=== PATIENT | female | born 1975 | race American Indian/Alaskan Native ===

== ENCOUNTER 2016-12-19 10:46 | Emergency (ER) | payer OTHER ==
[2016-12-19] MEDS ORDERED: BOOSTRIX IM ONE (13:59)
[2016-12-19] MEDS ORDERED: CLEOCIN IM ONE (13:59)
--- NOTE | 2016-12-19 14:36 | Emergency Department Report ---
ED General Adult HPI - General Chief complaint: Skin/Abscess/Foreign Body Stated complaint: INSECT BITE TO FACE Time Seen by Provider: 12/19/16 13:50 Source: patient Mode of arrival: Ambulatory Limitations: No Limitations - History of Present Illness Initial comments: PT c/o pain and swelling to R face. PT states she woke up Wednesday and noticed a small bump that was itchy. PT states she thought she had a bug bite. PT states she treated it topically and she took a Benadryl for the itching. PT states she noticed that the bump kept getting bigger. PT states she had some yellow drainage from the site. PT states her pain increased when she woke up this morning. PT states she also noticed facial swelling. PT states her lmp was 5 years ago due to having an ablation. MD Complaint: cellulitis -: Gradual, days(s) Location: face Severity scale (0 -10): 8 Quality: sharp, constant Consistency: constant Improves with: none Worsens with: medication, rest, other (palpation ) Associated Symptoms: denies other symptoms. denies: fever/chills, nausea/ vomiting Treatments Prior to Arrival: none - Related Data Previous Rx's Medication Instructions Recorded Last Taken Type Acetaminophen/Codeine [Tylenol #3] 1 tab PO Q6H PRN #12 tab 12/19/16 Unknown Rx Clindamycin [Clindamycin CAP] 300 mg PO Q8H #30 cap 12/19/16 Unknown Rx Ibuprofen [Motrin] 600 mg PO Q8H PRN #15 tablet 12/19/16 Unknown Rx Allergies Allergy/AdvReac Type Severity Reaction Status Date / Time No Known Allergies Allergy Unverified 12/19/16 11:05 ED Review of Systems ROS: Stated complaint: INSECT BITE TO FACE Other details as noted in HPI Comment: All other systems reviewed and negative Constitutional: denies: chills, fever ENT: ear pain Gastrointestinal: denies: abdominal pain, nausea, vomiting Genitourinary: denies: abnormal menses Musculoskeletal: as per HPI Skin: as per HPI, change in color Neurological: headache ED Past Medical Hx - Past Medical History Hx Hypertension: Yes - Surgical History Additional Surgical History: Thyroidectomy, tubal ligation, lap band - Social History Smoking Status: Never Smoker Substance Use Type: None - Medications Home Medications: Home Medications Medication Instructions Recorded Confirmed Last Taken Type Acetaminophen/Codeine [Tylenol #3] 1 tab PO Q6H PRN #12 tab 12/19/16 Unknown Rx Clindamycin [Clindamycin CAP] 300 mg PO Q8H #30 cap 12/19/16 Unknown Rx Ibuprofen [Motrin] 600 mg PO Q8H PRN #15 tablet 12/19/16 Unknown Rx ED Physical Exam - General Limitations: No Limitations General appearance: alert, in no apparent distress - Head Head exam: Present: atraumatic, normocephalic, other (R check with erythema, edema, warmth and tenderness. no area of flucuance noted. ) - Eye Eye exam: Present: normal appearance, PERRL, EOMI. Absent: conjunctival injection - ENT ENT exam: Present: normal orophraynx, mucous membranes moist, other (no dental abcess noted ). Absent: TM's normal bilaterally (PET in R ear ) - Neck Neck exam: Present: normal inspection, tenderness, full ROM, lymphadenopathy - Respiratory Respiratory exam: Present: normal lung sounds bilaterally. Absent: respiratory distress, chest wall tenderness - Cardiovascular Cardiovascular Exam: Present: regular rate, normal rhythm, normal heart sounds - GI/Abdominal GI/Abdominal exam: Present: soft. Absent: tenderness - Extremities Exam Extremities exam: Present: normal inspection, full ROM - Back Exam Back exam: Present: normal inspection, full ROM. Absent: tenderness, CVA tenderness (R), CVA tenderness (L), muscle spasm, paraspinal tenderness, vertebral tenderness - Neurological Exam Neurological exam: Present: alert, oriented X3, normal gait - Psychiatric Psychiatric exam: Present: normal affect, normal mood - Skin Skin exam: Present: warm, dry, intact, erythema (to R check ) - Expanded Skin Exam Expanded Distribution of rash: face Description of rash: Present: tenderness, erythematous, swelling. Absent: vesicular, blisters ED Course Vital Signs 12/19/16 12/19/16 11:05 15:14 Temperature 98.4 F 99.5 F Pulse Rate 65 60 Respiratory 16 20 Rate Blood Pressure 140/99 Blood Pressure 168/105 [Left] O2 Sat by Pulse 100 100 Oximetry - Reevaluation(s) Reevaluation #1: 12/19/16 14:43 PT aware of dx. PT aware of plan of care. Strict return precautions reviewed. - Pulse Oximetry Interpretation Digit-Finger Initial Pulse Oximetry Readin Actions Taken: none ED Medical Decision Making - Differential Diagnosis abscess, celluitis Critical Care Time: No Critical care attestation.: If time is entered above; I have spent that time in minutes in the direct care of this critically ill patient, excluding procedure time. ED Disposition Clinical Impression: Facial cellulitis, Need for Tdap vaccination Disposition: TO HOME OR SELFCARE Is pt being admited?: No Does the pt Need Aspirin: No Condition: Stable Instructions: Cellulitis (ED) Additional Instructions: Return to the ED in 24-48 hours for recheck Return sooner if you develop blisters, fevers, chills, nausea, vomiting or worsening swelling Warm compresses to R face at least 6 times a day No driving or Alcohol if you need to take Tylenol #3 for your pain Good hand washing Follow up with PCP next week for bp recheck Prescriptions: Acetaminophen/Codeine [Tylenol #3] 1 tab PO Q6H PRN #12 tab PRN Reason: Pain , Severe (7-10) Clindamycin [Clindamycin CAP] 300 mg PO Q8H #30 cap Ibuprofen [Motrin] 600 mg PO Q8H PRN #15 tablet PRN Reason: Pain Referrals: THA FORRESTER MD [Primary Care Provider] - 3-5 Days Time of Disposition: 14:51
[2016-12-19 15:15] VITALS: BP 168/105
== END 2016-12-19 15:25 | disposition home or self-care (01) ==
LOC: ED 10:46
DX: L03.211 Cellulitis of face (principal); I10 Essential (primary) hypertension
CPT/HCPCS: 90471; 90715; 96372; 99282

== ENCOUNTER 2018-11-07 18:03 | Emergency (ER) | payer SELFPAY ==
--- NOTE | 2018-11-07 18:44 | Emergency Department Report ---
Blank Doc - Documentation Documentation: This is a 43-year-old female that presents with intermittent headaches and tanya atreal lower leg swelling. Denies any trauma. Denies worst headache or thunderclap headache. This initial assessment/diagnostic orders/clinical plan/treatment(s) is/are subject to change based on patient's health status, clinical progression and re- assessment by fellow clinical providers in the ED. Further treatment and workup at subsequent clinical providers discretion. Patient/guardians urged not to elope from the ED as their condition may be serious if not clinically assessed and managed. Initial orders include: 1- Patient sent to [facility] for further evaluation and treatment 2- labs
[2018-11-07 19:18] LABS: Basophils # (Auto) 0.1 K/mm3 (0.0-0.1); Basophils % (Auto) 1.2 % (0.0-1.8); Eosinophils # (Auto) 0.1 K/mm3 (0.0-0.4); Eosinophils % (Auto) 2.5 % (0.0-4.3); Hemoglobin 13.9 gm/dl (10.1-14.3); Lymphocytes # (Auto) 1.9 K/mm3 (1.2-5.4); Lymphocytes % (Auto) 33.1 % (13.4-35.0); Mean Corpuscular HGB Conc 35 % (30-34); Mean Corpuscular Volume 87 fl (79-97); Monocytes # (Auto) 0.6 K/mm3 (0.0-0.8); Monocytes % (Auto) 9.6 % (0.0-7.3); Platelet Count 263 K/mm3 (140-440); Red Blood Count 4.58 M/mm3 (3.65-5.03); Red Cell Distribution Width 12.6 % (13.2-15.2)
[2018-11-07 19:47] LABS: BUN/Creatinine Ratio 20; Blood Urea Nitrogen 14 mg/dL (7-17); Hemolysis Index 15
--- NOTE | 2018-11-07 21:34 | Emergency Department Report ---
HPI - General Chief Complaint: Headache Time Seen by Provider: 11/07/18 18:42 - HPI HPI: 43-year-old white female presents to the emergency department with complaint of a 5 day history of right-sided headache, as well as some pain and numbness to the right arm and leg. She says that it is a sharp pain but at the same time and also feels numb. These symptoms worsen at night. She's been taking some Tylenol for her symptoms with some transient relief. No vision change, slurred speech. She has a history of hypertension and hypothyroidism. She does not have a primary care physician. She denies any tobacco or illicit drug use. ED Past Medical Hx - Past Medical History Hx Hypertension: Yes - Surgical History Past Surgical History?: Yes Additional Surgical History: Thyroidectomy, tubal ligation, lap band - Social History Smoking Status: Never Smoker Substance Use Type: Alcohol - Medications Home Medications: Home Medications Medication Instructions Recorded Confirmed Last Taken Type Acetaminophen/Codeine [Tylenol #3] 1 tab PO Q6H PRN #12 tab 12/19/16 Unknown Rx Clindamycin [Clindamycin CAP] 300 mg PO Q8H #30 cap 12/19/16 Unknown Rx Ibuprofen [Motrin] 600 mg PO Q8H PRN #15 tablet 12/19/16 Unknown Rx ED Review of Systems ROS: Stated complaint: RT SIDE SWOLLEN/HEADACHE Other details as noted in HPI Comment: All other systems reviewed and negative Constitutional: denies: chills, fever Eyes: denies: eye pain, vision change ENT: denies: ear pain, throat pain Respiratory: denies: cough, shortness of breath Cardiovascular: edema (ankles). denies: chest pain, palpitations Gastrointestinal: denies: abdominal pain, vomiting Genitourinary: denies: dysuria, discharge Musculoskeletal: myalgia. denies: back pain Skin: denies: rash, lesions Neurological: headache, numbness. denies: weakness Physical Exam - Physical Exam Vital Signs: Vital Signs 11/07/18 18:38 Temperature 98.3 F Pulse Rate 90 Respiratory 18 Rate Blood Pressure 153/91 O2 Sat by Pulse 100 Oximetry Physical Exam: GENERAL: The patient is well-developed well-nourished. HENT: Normocephalic. Atraumatic. Patient has moist mucous membranes. EYES: Extraocular motions are intact. Pupils equal reactive to light bilaterally. No nystagmus. NECK: Supple. Trachea is midline. CHEST/LUNGS: Clear to auscultation. There is no respiratory distress noted. HEART/CARDIOVASCULAR: Regular. There is no tachycardia. There is no murmur. ABDOMEN: Abdomen is soft, nontender. Patient has normal bowel sounds. There is no abdominal distention. SKIN: Skin is warm and dry. NEURO: The patient is awake, alert, and oriented. The patient is cooperative. The patient has no focal neurologic deficits. The patient has normal speech. Cranial nerves II through XII grossly intact. No pronator drift. No facial asymmetry. No dysmetria. MUSCULOSKELETAL: There is no tenderness or deformity. There is no limitation range of motion. There is no evidence of acute injury. ED Course Vital Signs 11/07/18 18:38 Temperature 98.3 F Pulse Rate 90 Respiratory 18 Rate Blood Pressure 153/91 O2 Sat by Pulse 100 Oximetry ED Medical Decision Making - Lab Data Result diagrams: 11/07/18 18:56 11/07/18 18:56 - Radiology Data Radiology results: report reviewed CT of the head does not show any acute intracranial process including no ischemia, shift, mass, bleeding or skull fracture. - Medical Decision Making Patient presents with a few days of a right-sided headache. She has some complaints of some right arm pain that she described as both pain and numbness. On examination, she has no focal or motor deficits. Cranial nerves are intact. CT of the head did not show any bleed, shift, mass, ischemia, or any other acute process. Her labs have been unremarkable. She was given a [place] for pain with resolution of the headache. She still complains of some pain to the right upper arm down to the elbow. The patient is feeling improved and asking for discharge home. She has been given a referral for PCP, and an orthopedist. She w ill return to the emergency department with any return or worsening of her symptoms or any acute distress. - Differential Diagnosis Migraine, tension WOLF, TIA, SAH Critical Care Time: No Critical care attestation.: If time is entered above; I have spent that time in minutes in the direct care of this critically ill patient, excluding procedure time. ED Disposition Clinical Impression: Right arm pain Headache Qualifiers: Headache type: unspecified Headache chronicity pattern: unspecified pattern Intractability: not intractable Qualified Code(s): R51 - Headache Disposition: DC-01 TO HOME OR SELFCARE Is pt being admited?: No Condition: Stable Instructions: Acute Headache (ED), Arthralgia (ED) Additional Instructions: Please follow up with a primary care physician in the next few days. I will give you a referral for some local primary care physicians and clinics in the area. I am also giving him a referral for a local orthopedist, Dr. Gramajo, to follow up regarding your right arm pain. Return to the emergency department immediately with any worsening of your symptoms or any acute distress. Referrals: [facility] [Outside] - 2-3 Days KATHI HERNANDEZ MD [Staff Physician] - 2-3 Days CHON GRAMAJO MD [Staff Physician] - 2-3 Days Time of Disposition: 02:21
[2018-11-07] MEDS ORDERED: NORCO 5/325 PO ONE (22:10)
[2018-11-07] MEDS ORDERED: NORCO 5/325 ONE (22:15)
[2018-11-07] MEDS ORDERED: NACL 0.9% 1000 ML 1,000 ML ONE (22:52)
[2018-11-07 23:20] LABS: Bacteria,Urine 1+ /HPF (Negative); Mucus,Urine FEW /HPF
[2018-11-08 00:05] LABS: Bilirubin,Urine NEG (Negative); Blood,Urine NEG (Negative); Color,Urine Straw (Yellow); Protein,Urine <15 mg/dL mg/dL (Negative); Urobilinogen,Urine < 2.0 mg/dL (<2.0)
[2018-11-08 00:24] VITALS: BP 136/79
--- NOTE | 2018-11-10 12:51 | Cat Scan Report ---
CT head without contrast INDICATION : WOLF; LEFT SIDE WEAKNESS. TECHNIQUE: Axial imaging performed from the skull apex through the skull base without the use of con trast. All CT scans at this location are performed using CT dose reduction for ALARA by means of aut omated exposure control. COMPARISON: None FINDINGS: Parenchyma: No acute intracranial hemorrhage or parenchymal abnormality. Ventricles: Ventricles are normal in size and appear symmetric. Soft tissues: Soft tissues including the orbits appear normal. Bones: No acute osseous abnormality. Sinuses: Sinuses and mastoid air cells are clear. IMPRESSION: No acute abnormality. Signer Name: Malik Herman MD Signed: 11/07/2018 11:08 PM Workstation Name: [id number]
== END 2018-11-08 00:48 | disposition home or self-care (01) ==
LOC: ED 18:03
DX: M79.601 Pain in right arm (principal); R51 Headache; I10 Essential (primary) hypertension; Z98.51 Tubal ligation status; E89.0 Postprocedural hypothyroidism; Z91.041 Radiographic dye allergy status; Z79.1 Long term (current) use of non-steroidal anti-inflammatories (NSAID); Z79.899 Other long term (current) drug therapy
CPT/HCPCS: 36415; 70450; 80048; 81001; 83735; 83880; 84443; 84703; 85025; 99283; J7030

== ENCOUNTER 2019-05-29 08:30 | Emergency (ER) | payer OTHER ==
[2019-05-29 08:38] VITALS: BP 149/99
[2019-05-29] MEDS ORDERED: KETOROLAC 60 MG/2 ML INJ IM ONE (10:32)
[2019-05-29] MEDS ORDERED: predniSONE 20 MG TAB PO ONE (10:32)
--- NOTE | 2019-05-29 11:05 | Emergency Department Report ---
ED Back Pain/Injury HPI - General Chief Complaint: Back Pain/Injury Stated Complaint: BACK AND RIGHT LEG PAIN Time Seen by Provider: 05/29/19 09:21 Source: patient Limitations: No Limitations - History of Present Illness Initial Comments: This is a 43-year-old female nontoxic, well nourished in appearance, no acute signs of distress presents to the ED with c/o of acute on chronic lower back pain. Patient stated that the past 2 days he was moving and developed this pain. Patient states has history of sciatica nerve pain which is similar symptoms as today. Patient states that pain radiates through to his right lower extremity. Patient denies any trauma. Denies any bladder or bowel instability. Patient denies any urinary symptoms. Denies any fever, chills, nausea, v omiting, headache, stiff neck, chest pain or shortness of breath. Patient denies any numbness or tingling. Denies any drug allergies. Denies significant past medical history. MD Complaint: back pain -: days(s) (2) Similar Symptoms Previously: Yes Radiation: right leg Severity: mild Severity scale (0 -10): 8 Quality: aching Consistency: constant Improves With: immobilization, sitting upright Worsens With: movement, walking Context: while lifting, turning/twisting Associated Symptoms: denies other symptoms. denies: confusion, weakness, chest pain, numbness, difficulty walking, cough, difficulty urinating, diaphoresis, incontinence, fever/chills, constipation, headaches, abdominal pain, loss of appetite, malaise, nausea/vomiting, rash, seizure, shortness of breath, syncope - Related Data Previous Rx's Medication Instructions Recorded Last Taken Type Acetaminophen/Codeine [Tylenol #3] 1 tab PO Q6H PRN #12 tab 12/19/16 Unknown Rx Clindamycin [Clindamycin CAP] 300 mg PO Q8H #30 cap 12/19/16 Unknown Rx Ibuprofen [Motrin] 600 mg PO Q8H PRN #15 tablet 12/19/16 Unknown Rx Cyclobenzaprine [Flexeril] 10 mg PO QHS PRN #10 tablet 05/29/19 Unknown Rx Naproxen 500 mg PO Q12H PRN #20 tablet 05/29/19 Unknown Rx Allergies Allergy/AdvReac Type Severity Reaction Status Date / Time iodine Allergy Shortness Verified 11/07/18 18:07 of Breath ED Review of Systems ROS: Stated complaint: BACK AND RIGHT LEG PAIN Other details as noted in HPI Constitutional: denies: chills, fever Eyes: denies: eye pain, eye discharge, vision change ENT: denies: ear pain, throat pain Respiratory: denies: cough, shortness of breath, wheezing Cardiovascular: denies: chest pain, palpitations Endocrine: no symptoms reported Gastrointestinal: denies: abdominal pain, nausea, diarrhea Genitourinary: denies: urgency, dysuria, discharge Musculoskeletal: back pain. denies: joint swelling, arthralgia Skin: denies: rash, lesions Neurological: denies: headache, weakness, paresthesias Psychiatric: denies: anxiety, depression Hematological/Lymphatic: denies: easy bleeding, easy bruising ED Past Medical Hx - Past Medical History Previous Medical History?: Yes Hx Hypertension: Yes - Surgical History Past Surgical History?: Yes Additional Surgical History: Thyroidectomy, tubal ligation, lap band - Social History Smoking Status: Never Smoker Substance Use Type: None - Medications Home Medications: Home Medications Medication Instructions Recorded Confirmed Last Taken Type Acetaminophen/Codeine [Tylenol #3] 1 tab PO Q6H PRN #12 tab 12/19/16 Unknown Rx Clindamycin [Clindamycin CAP] 300 mg PO Q8H #30 cap 12/19/16 Unknown Rx Ibuprofen [Motrin] 600 mg PO Q8H PRN #15 tablet 12/19/16 Unknown Rx Cyclobenzaprine [Flexeril] 10 mg PO QHS PRN #10 tablet 05/29/19 Unknown Rx Naproxen 500 mg PO Q12H PRN #20 tablet 05/29/19 Unknown Rx ED Physical Exam - General Limitations: No Limitations General appearance: alert, in no apparent distress - Head Head exam: Present: atraumatic, normocephalic - Eye Eye exam: Present: normal appearance - Neck Neck exam: Present: normal inspection, full ROM. Absent: tenderness, meningismus, lymphadenopathy - Extremities Exam Extremities exam: Present: normal inspection, full ROM - Back Exam Back exam: Present: normal inspection, full ROM, paraspinal tenderness (lumbar paraspinal). Absent: tenderness, CVA tenderness (R), CVA tenderness (L), muscle spasm, vertebral tenderness, rash noted - Expanded Back Exam Expanded Back exam: Absent: saddle anesthesia Back exam: Negative Straight Leg Raising: Left, Right - Neurological Exam Neurological exam: Present: alert, oriented X3, normal gait - Psychiatric Psychiatric exam: Present: normal affect, normal mood - Skin Skin exam: Present: warm, dry, intact, normal color. Absent: rash ED Course Vital Signs 05/29/19 08:34 Temperature 97.7 F Pulse Rate 78 Respiratory 18 Rate Blood Pressure 149/99 O2 Sat by Pulse 99 Oximetry - Reevaluation(s) Reevaluation #1: 05/29/19 11:06 Patient is speaking in full sentences with no signs of distress noted. ED Medical Decision Making - Medical Decision Making This is a 43-year-old female that presents with low back strain. Patient is stable was examined by me. There is no spinal tenderness. There is no cauda equina syndrome during examination. No bladder or bowel instability. Patient received Toradol 60 mg IM and predisone in the ED which stated that her symptoms has resolved and subsided. Patient is discharged with muscle relaxant and Motrin. Patient was instructed not to operate any machinery while taking muscle relaxant as they cause her drowsiness. Patient was referred to Follow-up with a primary care doctor in 3-5 days or if symptoms worsen and continue return to emergency room as soon as possible. At time of discharge, the patient does not seem toxic or ill in appearance. No acute signs of distress noted. Patient agrees to discharge treatment plan of care. No further questions noted by the patient. This chart is dictated with using [employer] Critical care attestation.: If time is entered above; I have spent that time in minutes in the direct care of this critically ill patient, excluding procedure time. ED Disposition Clinical Impression: Low back strain Qualifiers: Encounter type: initial encounter Qualified Code(s): S39.012A - Strain of muscle, fascia and tendon of lower back, initial encounter Disposition: - TO HOME OR SELFCARE Is pt being admited?: No Does the pt Need Aspirin: No Condition: Stable Instructions: Low Back Strain (ED), Cyclobenzaprine (By mouth) Additional Instructions: Follow-up with your primary care doctor in 3-5 days or if symptoms worsen such as bladder or bowel stability, chest pain, short of breath, numbness or tingling sensation in extremities, headache, dizziness, visual changes, nausea vomiting, or abdominal pain, return back to emergency room as was possible. Take ibuprofen and Flexeril as prescribed. Do not operate heavy machinery while taking Flexeril due to sedation Prescriptions: Cyclobenzaprine [Flexeril] 10 mg PO QHS PRN #10 tablet PRN Reason: Muscle Spasm Naproxen 500 mg PO Q12H PRN #20 tablet PRN Reason: Pain , Severe (7-10) [facility] SELENA [Primary Care Provider] - 3-5 Days PRIMARY MD LISSETH [Referring] - 3-5 Days JULIAN SANTIAGO MD [Staff Physician] - 3-5 Days [facility] [Outside] - 3-5 Days Forms: Work/School Release Form(ED)
== END 2019-05-29 11:47 | disposition home or self-care (01) ==
LOC: ED 08:30
DX: S39.012A Strain of muscle, fascia and tendon of lower back, initial encounter (principal); M79.604 Pain in right leg; I10 Essential (primary) hypertension; Z98.51 Tubal ligation status; Z98.890 Other specified postprocedural states; Z79.899 Other long term (current) drug therapy; Z91.041 Radiographic dye allergy status; X58.XXXA Exposure to other specified factors, initial encounter; Y93.89 Activity, other specified; Y92.89 Other specified places as the place of occurrence of the external cause; Y99.8 Other external cause status
CPT/HCPCS: 96372; 99282; J1885; J7512